=== PATIENT | female | born 1990 | race Caucasian/White ===

== ENCOUNTER → 2021-04-28 | Outpatient (POV) | payer BC ==
[~2021-04-28] VITALS: Ht 175.3 cm; Wt 81.8 kg
[2021-04-28 10:45] VITALS: BP 131/71
== END ==
LOC: M IRPOV 10:39
PROVIDERS: ATTEND Radiology Diagnostic Radiology
DX: R22.42 Localized swelling, mass and lump, left lower limb (principal); I83.812 Varicose veins of left lower extremity with pain; N94.12 Deep dyspareunia